=== PATIENT | female | born 1935 | race African-American/Black ===

== ENCOUNTER 2017-01-30 12:00 | Inpatient (IN) | payer MEDICARE, MEDICAID ==
[2017-01-30] MEDS ORDERED: Dicyclomine 20 MG TAB ONE (13:46)
[2017-01-30 15:06] VITALS: BMI 30.9
[2017-01-30] MEDS ORDERED: Ondansetron ODT 4 MG TAB PER TUBE PRN (16:06)
[2017-01-30] MEDS ORDERED: PROVENTIL INHALER 6.7 G (200 INHALATIONS) INH PRN (16:06)
[2017-01-30] MEDS ORDERED: Mag-Al Plus 1200 MG/1200 MG/120 MG/30 ML UDCUP PER TUBE PRN (16:06)
[2017-01-30] MEDS ORDERED: Senokot 8.6 MG TAB PER TUBE PRN (16:06)
[2017-01-30] MEDS: Acetaminophen/Codeine 30-300mg Tablet PER TUBE PRN ×2 (17:00→21:05)
[2017-01-30] MEDS: Voriconazole 50 MG TAB PO SCH (21:05)
[2017-01-31 06:06] LABS: INR-International Normal Ratio 1.9; Prothrombin Time 22.3 SEC (12.0-14.7)
[2017-01-31 06:11] LABS: ALT (SGPT) 10 U/L (8-55); AST (SGOT) 24 U/L (5-34); Albumin 1.7 g/dL (3.4-4.8); Alkaline Phosphatase 103 U/L (40-150); Anion Gap 11 mmol/L (10-20); BUN (Urea Nitrogen) 16 mg/dL (9.8-20.1); Bilirubin, Total 0.3 mg/dL (0.2-1.2); Calc. Creatinine Clearance 67 mL/min (70-130); Calcium 7.8 mg/dL (7.8-10.44); Carbon Dioxide 19 mmol/L (23-31); Chloride 112 mmol/L (98-107); Estimated GFR-MDRD 87; Globulin 4.2 g/dL (2.4-3.5); Glucose 93 mg/dL (83-110); Potassium 5.3 mmol/L (3.5-5.1); Protein, Total 5.9 g/dL (6.0-8.3); Sodium 137 mmol/L (136-145)
[2017-01-31 08:04] LABS: #Basophils 0.1 thou/uL (0.0-0.2); #Eosinphils 0.2 thou/uL (0.0-0.7); #Lymphocytes 2.2 thou/uL (1.20-3.40); #Neutrophils 4.3 thou/uL (1.40-6.50); %Basophils 1.6 % (0.0-1.0); %Eosinophils 2.5 % (0.0-10.0); %Lymphocytes 27.9 % (21.0-51.0); %Monocytes 12.9 % (0.0-10.0); %Neutrophils 55.2 % (42.0-75.0); Hemoglobin 7.9 g/dL (12.0-16.0); Mean Corpuscular HGB CONC 30.9 g/dL (32.0-36.0); Mean Corpuscular Hemoglobin 30.3 pg (27.0-31.0); Mean Platelet Volume 6.8 fL (7.4-10.4); Platelet Count 340 thou/uL (130-400); RBC Distribution Width 14.4 % (11.5-14.5); White Blood Cell (WBC) Count 7.8 thou/uL (4.8-10.8)
[2017-01-31 08:25] LABS: PLT Morphology Comment Appears Adequate; RBC Morphology Normal
[2017-01-31] MEDS ORDERED: FLU VACC TS2017-18 (>65YR) 0.5 ML SYRINGE IM ONE (09:00)
[2017-01-31] MEDS: Pantoprazole 40 MG GRANULES PACKET PER TUBE SCH (09:11)
[2017-01-31] MEDS: Saccharomyces boulardii 250 MG CAP PER TUBE SCH (09:11)
[2017-01-31] MEDS: Acetaminophen/Codeine 30-300mg Tablet PER TUBE PRN ×2 (09:27→20:26)
[2017-01-31] MEDS: Voriconazole 50 MG TAB PO SCH ×2 (09:28→20:19)
[2017-01-31] MEDS: Sodium Hypochlorite 0.25% Solution 480 ML BOT TOP SCH (10:45)
[2017-01-31] MEDS ORDERED: Voriconazole 50 MG TAB PO ONE (12:07)
[2017-02-01] MEDS: Acetaminophen/Codeine 30-300mg Tablet PER TUBE PRN ×4 (05:08→21:08)
[2017-02-01 05:41] LABS: INR-International Normal Ratio 1.7; Prothrombin Time 20.3 SEC (12.0-14.7)
[2017-02-01] MEDS: Saccharomyces boulardii 250 MG CAP PER TUBE SCH (09:37)
[2017-02-01] MEDS: Pantoprazole 40 MG GRANULES PACKET PER TUBE SCH (09:37)
[2017-02-01] MEDS: Voriconazole 50 MG TAB PO SCH ×2 (09:42→20:59)
[2017-02-01] MEDS: Sodium Hypochlorite 0.25% Solution 480 ML BOT TOP SCH (09:43)
[2017-02-01] MEDS: Warfarin Sodium 2.5 MG TAB PER TUBE SCH (16:20)
[2017-02-02 05:31] LABS: INR-International Normal Ratio 1.8
[2017-02-02] MEDS: Saccharomyces boulardii 250 MG CAP PER TUBE SCH (09:07)
[2017-02-02] MEDS: Pantoprazole 40 MG GRANULES PACKET PER TUBE SCH (09:07)
[2017-02-02] MEDS: Voriconazole 50 MG TAB PO SCH ×2 (09:08→20:54)
[2017-02-02] MEDS: Acetaminophen/Codeine 30-300mg Tablet PER TUBE PRN (09:30)
[2017-02-02] MEDS: Sodium Hypochlorite 0.25% Solution 480 ML BOT TOP SCH (15:13)
[2017-02-02] MEDS: Warfarin Sodium 2.5 MG TAB PER TUBE SCH (16:47)
[2017-02-02] MEDS: Acetaminophen 325 MG TAB PER TUBE PRN (21:14)
[2017-02-03] MEDS: Acetaminophen/Codeine 30-300mg Tablet PER TUBE PRN ×3 (01:27→21:27)
[2017-02-03 05:29] LABS: INR-International Normal Ratio 2.4; Prothrombin Time 26.8 SEC (12.0-14.7)
[2017-02-03] MEDS: Saccharomyces boulardii 250 MG CAP PER TUBE SCH (09:44)
[2017-02-03] MEDS: Pantoprazole 40 MG GRANULES PACKET PER TUBE SCH (09:44)
[2017-02-03] MEDS: Voriconazole 50 MG TAB PO SCH ×2 (09:45→21:28)
[2017-02-03] MEDS: Sodium Hypochlorite 0.25% Solution 480 ML BOT TOP SCH (09:45)
[2017-02-03] MEDS: Warfarin Sodium 2.5 MG TAB PER TUBE SCH (17:26)
[2017-02-04 06:01] LABS: #Basophils 0.1 thou/uL (0.0-0.2); #Eosinphils 0.2 thou/uL (0.0-0.7); #Lymphocytes 2.3 thou/uL (1.20-3.40); #Monocytes 1.3 thou/uL (0.11-0.59); #Neutrophils 4.9 thou/uL (1.40-6.50); %Basophils 1.5 % (0.0-1.0); %Eosinophils 2.3 % (0.0-10.0); %Lymphocytes 26.3 % (21.0-51.0); %Monocytes 14.6 % (0.0-10.0); %Neutrophils 55.4 % (42.0-75.0); Hemoglobin 7.9 g/dL (12.0-16.0); Mean Corpuscular HGB CONC 31.9 g/dL (32.0-36.0); Mean Corpuscular Hemoglobin 30.8 pg (27.0-31.0); Mean Corpuscular Volume 96.8 fl (81.0-99.0); Mean Platelet Volume 6.4 fL (7.4-10.4); Platelet Count 411 thou/uL (130-400); RBC Distribution Width 14.4 % (11.5-14.5); Red Blood Cell (RBC) Count 2.55 mill/uL (4.20-5.40); White Blood Cell (WBC) Count 8.9 thou/uL (4.8-10.8)
[2017-02-04 06:11] LABS: ALT (SGPT) Less than 6 U/L (8-55); AST (SGOT) 19 U/L (5-34); Albumin 1.6 g/dL (3.4-4.8); Alkaline Phosphatase 102 U/L (40-150); Anion Gap 8 mmol/L (10-20); BUN (Urea Nitrogen) 22 mg/dL (9.8-20.1); Bilirubin, Total 0.3 mg/dL (0.2-1.2); Calc. Creatinine Clearance 68 mL/min (70-130); Calcium 7.8 mg/dL (7.8-10.44); Carbon Dioxide 22 mmol/L (23-31); Chloride 110 mmol/L (98-107); Estimated GFR-MDRD 89; Globulin 4.4 g/dL (2.4-3.5); Glucose 87 mg/dL (83-110); Potassium 5.1 mmol/L (3.5-5.1); Sodium 135 mmol/L (136-145)
[2017-02-04 06:26] LABS: INR-International Normal Ratio 3.1; Prothrombin Time 33.4 SEC (12.0-14.7)
[2017-02-04] MEDS ORDERED: HYDROcodone/Acetaminophen 5/325 mg Tablet PO PRN ×2 (07:51→07:59)
[2017-02-04] MEDS: Sodium Hypochlorite 0.25% Solution 480 ML BOT TOP SCH (09:00)
[2017-02-04] MEDS: Pantoprazole 40 MG GRANULES PACKET PER TUBE SCH (09:08)
[2017-02-04] MEDS: Saccharomyces boulardii 250 MG CAP PER TUBE SCH (09:09)
[2017-02-04] MEDS: HYDROcodone/Acetaminophen 5/325 mg Tablet PO PRN ×2 (09:11→20:06)
[2017-02-04] MEDS ORDERED: Voriconazole 50 MG TAB PO ONE (13:15)
[2017-02-04] MEDS: Voriconazole 50 MG TAB PO SCH ×2 (13:36→20:07)
[2017-02-04] MEDS: Acetaminophen/Codeine 30-300mg Tablet PER TUBE PRN (13:37)
[2017-02-05] MEDS: HYDROcodone/Acetaminophen 5/325 mg Tablet PO PRN ×3 (04:28→21:23)
[2017-02-05 06:00] LABS: INR-International Normal Ratio 3.6; Prothrombin Time 37.5 SEC (12.0-14.7)
[2017-02-05] MEDS: Saccharomyces boulardii 250 MG CAP PER TUBE SCH (08:35)
[2017-02-05] MEDS: Pantoprazole 40 MG GRANULES PACKET PER TUBE SCH (08:35)
[2017-02-05] MEDS: Sodium Hypochlorite 0.25% Solution 480 ML BOT TOP SCH (08:36)
[2017-02-05] MEDS: Voriconazole 50 MG TAB PO SCH ×2 (08:41→21:21)
[2017-02-06] MEDS: Acetaminophen 325 MG TAB PER TUBE PRN (00:44)
[2017-02-06 06:16] LABS: #Basophils 0.1 thou/uL (0.0-0.2); #Eosinphils 0.3 thou/uL (0.0-0.7); #Lymphocytes 2.9 thou/uL (1.20-3.40); #Monocytes 1.3 thou/uL (0.11-0.59); #Neutrophils 5.5 thou/uL (1.40-6.50); %Eosinophils 2.8 % (0.0-10.0); %Lymphocytes 28.4 % (21.0-51.0); %Monocytes 13.2 % (0.0-10.0); %Neutrophils 54.6 % (42.0-75.0); Hemoglobin 7.7 g/dL (12.0-16.0); Mean Corpuscular HGB CONC 30.7 g/dL (32.0-36.0); Mean Corpuscular Hemoglobin 30.1 pg (27.0-31.0); Mean Corpuscular Volume 97.9 fl (81.0-99.0); Mean Platelet Volume 6.5 fL (7.4-10.4); Platelet Count 494 thou/uL (130-400); Prothrombin Time 42.3 SEC (12.0-14.7); RBC Distribution Width 14.7 % (11.5-14.5); Red Blood Cell (RBC) Count 2.55 mill/uL (4.20-5.40)
[2017-02-06 06:25] LABS: ALT (SGPT) 6 U/L (8-55); AST (SGOT) 21 U/L (5-34); Albumin 1.6 g/dL (3.4-4.8); Alkaline Phosphatase 103 U/L (40-150); Anion Gap 10 mmol/L (10-20); BUN (Urea Nitrogen) 24 mg/dL (9.8-20.1); Bilirubin, Total 0.3 mg/dL (0.2-1.2); Calc. Creatinine Clearance 64 mL/min (70-130); Calcium 7.9 mg/dL (7.8-10.44); Carbon Dioxide 21 mmol/L (23-31); Chloride 108 mmol/L (98-107); Estimated GFR-MDRD 83; Globulin 4.6 g/dL (2.4-3.5); Glucose 90 mg/dL (83-110); Potassium 5.4 mmol/L (3.5-5.1); Protein, Total 6.2 g/dL (6.0-8.3); Sodium 134 mmol/L (136-145)
[2017-02-06 06:33] LABS: INR-International Normal Ratio 4.2
[2017-02-06] MEDS ORDERED: Phytonadione 10 MG/ML AMP PO SCH (07:15)
[2017-02-06] MEDS ORDERED: Phytonadione 10 MG/ML AMP ONE (08:33)
[2017-02-06] MEDS: Pantoprazole 40 MG GRANULES PACKET PER TUBE SCH (09:07)
[2017-02-06] MEDS: Bisacodyl 10 MG SUPP PR PRN (09:07)
[2017-02-06] MEDS: Saccharomyces boulardii 250 MG CAP PER TUBE SCH (09:07)
[2017-02-06] MEDS: Sodium Hypochlorite 0.25% Solution 480 ML BOT TOP SCH (09:07)
[2017-02-06] MEDS: Voriconazole 50 MG TAB PO SCH ×2 (09:09→20:08)
[2017-02-06] MEDS: HYDROcodone/Acetaminophen 5/325 mg Tablet PO PRN ×2 (12:15→20:08)
[2017-02-06] MEDS ORDERED: Ventolin HFA Inhaler 60 PUFF INHALER ONE (15:52)
[2017-02-07 05:56] LABS: INR-International Normal Ratio 3.2; Prothrombin Time 34.1 SEC (12.0-14.7)
[2017-02-07] MEDS: Milk Of Magnesia 30 ML UDCUP PER TUBE PRN (07:32)
[2017-02-07] MEDS: Saccharomyces boulardii 250 MG CAP PER TUBE SCH (07:32)
[2017-02-07] MEDS: HYDROcodone/Acetaminophen 5/325 mg Tablet PO PRN ×3 (07:32→21:04)
[2017-02-07] MEDS: Pantoprazole 40 MG GRANULES PACKET PER TUBE SCH (07:49)
[2017-02-07] MEDS: Sodium Hypochlorite 0.25% Solution 480 ML BOT TOP SCH (07:50)
[2017-02-07] MEDS: Voriconazole 50 MG TAB PO SCH ×2 (08:45→20:15)
[2017-02-08] MEDS: HYDROcodone/Acetaminophen 5/325 mg Tablet PO PRN ×2 (04:51→12:31)
[2017-02-08 06:47] LABS: INR-International Normal Ratio 3.7; Prothrombin Time 38.3 SEC (12.0-14.7)
[2017-02-08] MEDS ORDERED: Phytonadione 10 MG/ML AMP PO SCH (07:30)
[2017-02-08] MEDS: Saccharomyces boulardii 250 MG CAP PER TUBE SCH (08:20)
[2017-02-08] MEDS: Pantoprazole 40 MG GRANULES PACKET PER TUBE SCH (08:20)
[2017-02-08] MEDS: Sodium Hypochlorite 0.25% Solution 480 ML BOT TOP SCH (08:26)
[2017-02-08] MEDS: Acetaminophen 325 MG TAB PER TUBE PRN (09:22)
[2017-02-08] MEDS ORDERED: Phytonadione 10 MG/ML AMP ONE (09:39)
[2017-02-08] MEDS: Voriconazole 50 MG TAB PO SCH ×2 (12:06→20:06)
[2017-02-08] MEDS: Acetaminophen/Codeine 30-300mg Tablet PER TUBE PRN (20:06)
[2017-02-09] MEDS: Acetaminophen/Codeine 30-300mg Tablet PER TUBE PRN ×3 (02:09→21:31)
[2017-02-09] MEDS: Milk Of Magnesia 30 ML UDCUP PER TUBE PRN (02:09)
[2017-02-09 06:10] LABS: Prothrombin Time 32.6 SEC (12.0-14.7)
[2017-02-09] MEDS: HYDROcodone/Acetaminophen 5/325 mg Tablet PO PRN ×2 (08:42→17:20)
[2017-02-09] MEDS: Saccharomyces boulardii 250 MG CAP PER TUBE SCH (08:43)
[2017-02-09] MEDS: Pantoprazole 40 MG GRANULES PACKET PER TUBE SCH (08:47)
[2017-02-09] MEDS: Sodium Hypochlorite 0.25% Solution 480 ML BOT TOP SCH (08:49)
[2017-02-09] MEDS: Voriconazole 50 MG TAB PO SCH ×2 (08:50→21:32)
[2017-02-10] MEDS: HYDROcodone/Acetaminophen 5/325 mg Tablet PO PRN ×3 (02:08→19:15)
[2017-02-10 06:22] LABS: INR-International Normal Ratio 3.4; Prothrombin Time 35.6 SEC (12.0-14.7)
[2017-02-10] MEDS: Acetaminophen/Codeine 30-300mg Tablet PER TUBE PRN ×2 (06:31→23:29)
[2017-02-10] MEDS: Pantoprazole 40 MG GRANULES PACKET PER TUBE SCH (08:34)
[2017-02-10] MEDS: Saccharomyces boulardii 250 MG CAP PER TUBE SCH (08:34)
[2017-02-10] MEDS: Sodium Hypochlorite 0.25% Solution 480 ML BOT TOP SCH (10:28)
[2017-02-10] MEDS: Bisacodyl 10 MG SUPP PR PRN (12:25)
[2017-02-10] MEDS: Voriconazole 50 MG TAB PO SCH (21:30)
[2017-02-11] MEDS: HYDROcodone/Acetaminophen 5/325 mg Tablet PO PRN ×3 (02:17→17:31)
[2017-02-11] MEDS: Acetaminophen/Codeine 30-300mg Tablet PER TUBE PRN ×2 (04:42→12:38)
[2017-02-11 06:23] LABS: INR-International Normal Ratio 3.2; Prothrombin Time 34.2 SEC (12.0-14.7)
[2017-02-11] MEDS: Voriconazole 50 MG TAB PO SCH ×2 (09:28→20:14)
[2017-02-11] MEDS: Pantoprazole 40 MG GRANULES PACKET PER TUBE SCH (09:29)
[2017-02-11] MEDS: Saccharomyces boulardii 250 MG CAP PER TUBE SCH (09:29)
[2017-02-11] MEDS: Sodium Hypochlorite 0.25% Solution 480 ML BOT TOP SCH (09:32)
[2017-02-11] MEDS ORDERED: HYDROcodone/Acetaminophen 5/325 mg Tablet PO PRN (16:24)
[2017-02-12 06:25] LABS: INR-International Normal Ratio 2.8; Prothrombin Time 30.3 SEC (12.0-14.7)
[2017-02-12] MEDS: Voriconazole 50 MG TAB PO SCH ×2 (09:19→20:17)
[2017-02-12] MEDS: HYDROcodone/Acetaminophen 5/325 mg Tablet PO PRN ×2 (09:20→15:36)
[2017-02-12] MEDS: Saccharomyces boulardii 250 MG CAP PER TUBE SCH (09:21)
[2017-02-12] MEDS: Pantoprazole 40 MG GRANULES PACKET PER TUBE SCH (09:21)
[2017-02-12] MEDS: Sodium Hypochlorite 0.25% Solution 480 ML BOT TOP SCH (09:22)
[2017-02-12] MEDS: Polyethylene Glycol 3350 17 GM Packet PER TUBE PRN (09:23)
[2017-02-13] MEDS: HYDROcodone/Acetaminophen 5/325 mg Tablet PO PRN ×3 (03:12→16:53)
[2017-02-13 06:22] LABS: INR-International Normal Ratio 2.4; Prothrombin Time 26.9 SEC (12.0-14.7)
[2017-02-13] MEDS: Saccharomyces boulardii 250 MG CAP PER TUBE SCH (08:55)
[2017-02-13] MEDS: Pantoprazole 40 MG GRANULES PACKET PER TUBE SCH (08:55)
[2017-02-13] MEDS: Voriconazole 50 MG TAB PO SCH ×2 (08:55→20:22)
[2017-02-13] MEDS: Polyethylene Glycol 3350 17 GM Packet PER TUBE PRN (08:55)
[2017-02-13] MEDS: Sodium Hypochlorite 0.25% Solution 480 ML BOT TOP SCH (08:56)
[2017-02-13] MEDS: Acetaminophen/Codeine 30-300mg Tablet PER TUBE PRN (21:23)
[2017-02-14] MEDS: HYDROcodone/Acetaminophen 5/325 mg Tablet PO PRN ×3 (02:25→21:25)
[2017-02-14] MEDS: Acetaminophen/Codeine 30-300mg Tablet PER TUBE PRN (05:53)
[2017-02-14 05:56] LABS: INR-International Normal Ratio 2.1; Prothrombin Time 24.5 SEC (12.0-14.7)
[2017-02-14] MEDS: Pantoprazole 40 MG GRANULES PACKET PER TUBE SCH (08:49)
[2017-02-14] MEDS: Saccharomyces boulardii 250 MG CAP PER TUBE SCH (08:49)
[2017-02-14] MEDS: Sodium Hypochlorite 0.25% Solution 480 ML BOT TOP SCH (08:50)
[2017-02-14] MEDS: Voriconazole 50 MG TAB PO SCH ×2 (08:56→20:45)
[2017-02-15] MEDS: Acetaminophen/Codeine 30-300mg Tablet PER TUBE PRN (02:39)
[2017-02-15 05:41] LABS: INR-International Normal Ratio 1.7; Prothrombin Time 20.7 SEC (12.0-14.7)
[2017-02-15] MEDS: Milk Of Magnesia 30 ML UDCUP PER TUBE PRN (05:43)
[2017-02-15 06:40] VITALS: BP 118/52; TEMP 98.7
[2017-02-15] MEDS: Saccharomyces boulardii 250 MG CAP PER TUBE SCH (08:49)
[2017-02-15] MEDS: Pantoprazole 40 MG GRANULES PACKET PER TUBE SCH (08:49)
[2017-02-15] MEDS: Voriconazole 50 MG TAB PO SCH (08:49)
[2017-02-15] MEDS: HYDROcodone/Acetaminophen 5/325 mg Tablet PO PRN (08:49)
[2017-02-15] MEDS: Sodium Hypochlorite 0.25% Solution 480 ML BOT TOP SCH (08:50)
--- NOTE | 2017-02-15 11:25 | DIS ---
DATE OF ADMISSION: 01/30/2017 DATE OF DISCHARGE: 02/15/2017 ADMISSION DIAGNOSIS: Chronic decubitus ulcers. SECONDARY DIAGNOSES: Ventricular tachyarrhythmia, dysphagia, status post PEG placement, chronic atrial fibrillation, chronic rheumatoid arthritis and obesity. PROCEDURES: Wound care was continued for the patient here. HOSPITAL COURSE: An 81-year-old female with chronic severe rheumatoid arthritis and end-stage ankylosis involving multiple joints with resultant bedbound status for the last 40 years, initially presented to [facility] with sepsis and multiple chronic decubitus ulcers. Complicating this issue the patient has severe malnutrition and during her stay noted dysphagia which resulted in placement of a PEG tube. She was evaluated by Infectious Disease, Dr. Novoa, who initiated the patient on chronic Voriconazole therapy secondary to the cultures, with final cultures pending and ultimate duration of therapy to be determined by Dr. Novoa. During her stay in [place] the patient also had noted ventricular tachyarrhythmia for which she was evaluated by Cardiology and ultimately started on amiodarone therapy; this has enabled the patient to remain in a hemodynamically stable state. Due to her chronic conditions, she was transitioned from [facility] to our facility here at [facility] for continued wound care. The patient had no major setbacks while at our facility. However, she has had some complications with development of a supratherapeutic state regarding her INR levels as she is on Coumadin for chronic atrial fibrillation. Her Coumadin was largely held until INR went below the level of 2 and was reinitiated; she did receive vitamin K on 2 separate occasions secondary to supratherapeutic state with a max INR level of 4.2. On day of discharge, she did fall below the level of 2 again and it is at 1.7 and thus would recommend to restart her Coumadin at 2.5 mg, but only at a dose to be received on Saturday, Saturday, and Saturday instead of daily, with regular followup of her INR thereafter. Discussion was had with the family on the patient's chronic condition and status and a hospice evaluation was obtained and initially agreed upon; however, subsequently revoked secondary to receiving supplementation through her PEG tube. At this time, she will transition to [facility] in [place] for further care. DISCHARGE DISPOSITION: The patient will discharge to [facility] in [place]. DISCHARGE MEDICATIONS: Include acetaminophen 650 mg q.4 hours p.r.n. per tube, Proventil 2 puffs q.6 hours p.r.n., amiodarone 200 mg per tube daily, Tylenol # 3 q.4 hours p.r.n. per tube, Maalox 30 mL per tube q.6 hours p.r.n., Dulcolax 10 mg per rectum daily p.r.n., magnesium hydroxide 30 mL per tube daily p.r.n., Zofran 4 mg per tube q.6 hours p.r.n., pantoprazole 40 mg per tube daily, MiraLax 17 grams per tube daily p.r.n., Florastor 250 mg per tube daily. Voriconazole 200 mg per tube b.i.d. and Coumadin 2.5 mg to be given on Saturday, Saturday and Saturday. MTDD
== END 2017-02-15 10:45 | DRG 592 ==
LOC: BURMED 12:00
PROVIDERS: ADMIT Family Medicine; ATTEND Family Medicine
DX: L89.313 Pressure ulcer of right buttock, stage 3 (principal); L89.320 Pressure ulcer of left buttock, unstageable; I47.2 Ventricular tachycardia; I13.0 Hypertensive heart and chronic kidney disease with heart failure and stage 1 through stage 4 chronic kidney disease, or unspecified chronic kidney disease; I42.9 Cardiomyopathy, unspecified; R13.12 Dysphagia, oropharyngeal phase; I50.9 Heart failure, unspecified; I08.3 Combined rheumatic disorders of mitral, aortic and tricuspid valves; I48.2 Chronic atrial fibrillation; L89.899 Pressure ulcer of other site, unspecified stage; Z93.1 Gastrostomy status; M06.9 Rheumatoid arthritis, unspecified; E66.9 Obesity, unspecified; Z68.31 Body mass index [BMI] 31.0-31.9, adult; M24.60 Ankylosis, unspecified joint; Z74.01 Bed confinement status; Z79.01 Long term (current) use of anticoagulants; Z51.5 Encounter for palliative care; N18.9 Chronic kidney disease, unspecified; K21.9 Gastro-esophageal reflux disease without esophagitis; J44.9 Chronic obstructive pulmonary disease, unspecified
CPT/HCPCS: 36415; 80053; 85025; 85610; 94664; 97602; G8987-GO-CN; G8988-GO-CM; G8990-GP-CH; G8991-GP-CH; J3430; Q0162